=== PATIENT | female | born 1980 | race Caucasian/White ===

== ENCOUNTER → 2024-04-18 | Outpatient (CLI) | payer BC ==
[2024-05-09 06:30] VITALS: BP 124/84; PULSE 99; RESP 16; TEMP 98.8
== END ==
LOC: WWCWWP 14:50
PROVIDERS: ATTEND Surgery
DX: R92.8 Other abnormal and inconclusive findings on diagnostic imaging of breast

== ENCOUNTER → 2024-04-18 | Outpatient (CLI) | payer BC ==
--- NOTE | 2024-05-29 15:13 | WWPN ---
[facility] - PROGRESS NOTE HISTORY OF PRESENT ILLNESS: Elda is a 43-year-old female who underwent a bilateral screening mammogram on 03/20/23. This resulted in an ultrasound of the left breast on 04/03/23 for which a complex cyst was noted, and a repeat left breast ultrasound was recommended as well as a left breast contrast mammogram. The patient did have on 05/02/23, an enhanced bilateral mammogram. This revealed left posterior upper outer quadrant focal asymmetry with no abnormal enhancement. Findings were most compatible with benign global asymmetry. It was felt to be a BI-RADS III , and a 6-month followup ultrasound targeting the subareolar region on the left breast was recommended. The patient has not had any further radiographic evaluation since April of 2023. At this time, she is not complaining of any lumps, masses, or nodules of concern in either breast. She does have occasional tenderness in the upper outer quadrant of the left breast. She is not complaining of any nipple discharge or skin changes. She has not had any surgery on her breast. Caffeine: One Coke per day. Nicotine: Negative. Chocolate: Occasional. control pills: 7 years. Hormones: Negative. FAMILY HISTORY: Paternal grandfather with throat cancer. He was a smoker. ENDOCRINE HISTORY: Menarche: 11. G2 and P2. Breastfed - negative. Age at first 21. Menopause. Periods have been irregular. She has them every 2 weeks and she is scheduled to have an ablation done in April of 2024. SOCIAL HISTORY: Nicotine: Negative. Alcohol: Occasional, approximately every 2 weeks. Drugs: Negative. MEDICAL HISTORY: Negative. SURGICAL HISTORY: Lap band. She lost 75 pounds. Tonsillectomy. Wrist. Left knee. REVIEW OF SYSTEMS: HEENT: Negative. BREASTS: As above. CARDIOVASCULAR: Negative. RESPIRATORY: Negative. GI: Negative. : Negative. MUSCULOSKELETAL: Negative. SKIN: Negative. NEUROLOGIC: Negative. PSYCH: Negative. ENDOCRINE: Negative. HEMATOLOGIC: Negative. ALLERGIES: Negative. PHYSICAL EXAMINATION: CONSTITUTIONAL: WNL. HEENT: WNL. NECK: WNL. RESPIRATORY: Clear to auscultation. CARDIOVASCULAR: S1 and S2. No murmurs. ABDOMEN: WNL. SKIN: WNL. NEURO: WNL. BREASTS: Bra: 34D. Right side larger than left. Ptosis grade 2-3, right; grade 2 left. PALPATION: 1. Right breast: Fibrocystic disease, no masses on multipositional exam. 2. Right axilla: No adenopathy of concern. 3. Left breast: Fibrocystic disease. Increased tissue upper outer quadrant, no masses. 4. Left axilla: No adenopathy of concern. IMPRESSION: Radiographic abnormality, left breast. The patient is due to bilateral mammogram and left breast ultrasound. This is to be ordered in the near future, and she will follow up after these are done. It should be noted that note from Dr. Bolanos, March 13, 2024, reviewed. MMODL / IJN: [id number] /
== END ==
LOC: WWCWWP 13:40
PROVIDERS: ATTEND Surgery

== ENCOUNTER → 2025-03-19 | Outpatient (CLI) | payer BC ==
--- NOTE | 2025-03-21 00:44 | CT ---
EXAMINATION TYPE: CT right knee - [facility] Protocol DATE OF EXAM: 03/19/2025 12:06 PM COMPARISON: None. CLINICAL INDICATION: Female, 44 years old with history of M17.11 UNILATERAL PRIMARY OSTEOARTHRITIS, R IGHT KN, RT GIULIANO KNEE, pain TECHNIQUE: [facility] presurgical planning of the knee. Images were obtained in the axial plane at 2 mm thi ck sections through the hip and ankle and 1 mm thick sections through the knee. Reconstructed images in the coronal and sagittal plane are reviewed. Contrast used: mL of , (none if empty) Oral contrast used: (none if empty) CT DLP: 972 mGycm, Automated exposure control for dose reduction was used. FINDINGS: Hip: Right femoral head articulates with the acetabulum. No acute fractures evident. Knee: There is narrowing of the medial compartment joint space. Milder narrowing lateral compartment joint space is present. There is narrowing the lateral femoral patellar joint space Ankle: No acute fractures evident. The ankle mortise appears intact. IMPRESSION: 1. CT for [facility] knee presurgical planning. [facility], , 03/21/2025 12:42 AM
== END | disposition home or self-care (01) ==
LOC: RADCTMAIN 11:12
PROVIDERS: ATTEND Orthopaedic Surgery
DX: Z01.818 Encounter for other preprocedural examination (principal); S83.281A Other tear of lateral meniscus, current injury, right knee, initial encounter; M17.11 Unilateral primary osteoarthritis, right knee; X58.XXXA Exposure to other specified factors, initial encounter